=== PATIENT | male | born 1955 | race Caucasian/White ===

== ENCOUNTER 2022-12-30 08:00 | Outpatient (RCR) | payer MEDICARE, BC, SELFPAY ==
--- NOTE | 2022-12-15 11:58 | PT.OPEX ---
PT [place] Outpatient Eval PT [facility] Outpatient Eval Start: 12/15/22 08:23 Freq: Status: Active Protocol: Document 12/15/22 08:24 ELISSARon (Rec: 12/15/22 11:56 REZA [email or web address]) E-signed By Yani Benoit, PT Physical Therapy Outpatient Evaluation Insurance Information Recert Due Date 03/11/23 Insurance Name [employer],Medicare B, Blue Cross/Blue Shield Medical Diagnosis Right shoulder pain Treating Diagnosis Right shoulder pain, limited shoulder ROM, impaired RC and periscapular strength, poor postural positioning Referring MD Dianelys Peña Subjective Subjective Ho reports to PT with primary complaint of right shoulder pain following extensive housework (flipping a house) over the past 6 months. He denies a specific injury that occurred. He has taken a break from work on the house for 2 weeks and feeling slightly better but still not able to perform any overhead motion. He will be going on vacation to [place] for 1 month in 2 weeks so hoping to control pain by then. He is having trouble sleeping on that shoulder as well. Denies any radicular symptoms. Has been icing which is somewhat pain relieving and taking Alieve for pain control. Goals are to return to overhead reaching and lifting to return to house tasks of painting, etc. PMH: hypertension Pain Comments 2/10 at rest Date of Last Physician Visit 11/26/22 Current Work Status Retired Preferred Name Ho Objective Other/Pertinent Objective Seated UE ROM (R/L): -Functional ER0: Occiput/T1 -Abd:91/176 -FF: 121/171 -Functional IR: L5/T7 UE Strength (R/L): -ER0: R: 5/5, L: 5/5 -IR0: R: 5/5, L: 5/5 -FF: R: 4+/5, L: 5/5 -Abduction: R: 4-/5 painful, L : 5/5 -Mid Trap: R: 4/5, L: 4/5 -Lower Trap: R: 4-/5, L: 4-/5 Posture: slight rounded shoulders Impingement: -Rice-Annelise: + Labral: -Modified Grove?s: - Bicep Tendon: -Speeds: - Rotator Cuff: -Drop Arm Test: - -ER Lag: - -Belly Press: - Functional Test Performed & Score SPADI: 63% Assessment Assessment/Impression Patient is a 67 year old male presenting to physical therapy for evaluation and treatment of right shoulder pain. Patient presents with limited shoulder flexion/abduction/ functional IR/functional ER, abduction weakness and pain and positive rice annelise indicative of shoulder impingement from overuse while working on his house. These impairments are limiting the patients ability to reach overhead, sleep on right shoulder, dressing, washing hair, lifting >20lb. Patient appears motivated to participate in PT and presents with good prognosis to improve mobility, strength, proprioception and return to functional activities with skilled physical therapy intervention. Primary Functional Limitations reach overhead, sleep on right shoulder, dressing, washing hair, lifting >20lb Plan of Care Rehabilitation Potential Good Physical Therapy Goals In 6 weeks (01/26/23) Patient demonstrates at least 160 degrees of shoulder flexion for ability to reach overhead into a high shelf, dress, and bathe without limitation. Pt will demonstrate improved sitting posture without cueing in consecutive sessions in order to decrease strain on right shoulder patient is able to sleep, including on shoulder, with waking 0-1 times per night In 12 weeks (03/09/23) Pt will exhibit RC and Scapular Stab strength of at least 4+/5 to allow progression back to normal and desired activities without pain Pt will exhibit 20 point improvement in SPADI Outcome measure to demonstrate functional improvement and progress towards goals. Treatment Plan/Direct Interventions Gait Training,Ice/Cold/ Vasopneumatic,Joint Mobilization,Manual Therapy, Neuromuscular Re-ed,Self-Care/ Home Management,Therapeutic Activities,Therapeutic Exercises Frequency/Duration 1x/wk for 6 weeks with 4 more sessions prn based on progress Patient Will Be Discharged From Therapy Completion of LTG(s), Independent w/HEP, Independently Progressing Evaluation Billing Untimed Code Treatment Minutes 25 Complexity Low Certification Information Initial Certification Date 12/15/22 Ending Certification Date 03/11/23 Provider Signature Shows Agreement With POC & Medical Necessity Physician Signature & Date Requested Please Sign/Date Here Physician Comment/Change : Physician NPI Number #
== END 2023-04-14 15:30 | disposition home or self-care (01) ==
PROVIDERS: PCP Family Medicine; Visit Provider Family Medicine
DX: M25.511 Pain in right shoulder (principal); R29.3 Abnormal posture; R53.1 Weakness; Z51.89 Encounter for other specified aftercare
CPT/HCPCS: 97110; 97112; 97161

== ENCOUNTER 2023-05-05 07:45 | Outpatient (CLI) | payer MEDICARE, BC, SELFPAY | END 2023-05-05 07:46 | disposition home or self-care (01) | LOC: NFLDREF 05-07 10:10 | PROVIDERS: PCP Family Medicine; Referring Provider Family Medicine; Visit Provider Family Medicine | DX: Z00.00 Encounter for general adult medical examination without abnormal findings (principal); E78.5 Hyperlipidemia, unspecified; I10 Essential (primary) hypertension; Z12.5 Encounter for screening for malignant neoplasm of prostate; Z13.9 Encounter for screening, unspecified | CPT/HCPCS: 80053; 80061; 84153 ==

== ENCOUNTER 2023-07-28 08:00 | Outpatient (RCR) | payer MEDICARE, BC, SELFPAY ==
--- NOTE | 2023-06-09 10:50 | PT.OPEX ---
PT [place] Outpatient Eval PT [facility] Outpatient Eval Start: 06/09/23 07:51 Freq: Status: Active Protocol: Document 06/09/23 07:52 REZA (Rec: 06/09/23 10:50 REZA [id number]) E-signed By Yani Benoit, PT Physical Therapy Outpatient Evaluation Insurance Information Recert Due Date 09/03/23 Insurance Name Medicare B,Blue Cross/Blue Shield Medical Diagnosis Right shoulder pain Treating Diagnosis Right shoulder pain, limited shoulder ROM, RC and periscapular weakness, poor postural positioning Referring Dianelys Workman Subjective Subjective Ho returns to PT with similar condition that he was seeing PT for in December of 2022. He originally reported pain following extensive overhead work (painting). At the time it appeared he was getting impingement type of pain. He then went on a 1 month trip to [place] and did not follow up with PT. He notes pain did get better for a little bit when he wasn't using the shoulder much. Now that he has gotten back to chores/moving and lifting he has exacerbated the pain more. He notes pain is localized more on the top of the shoulder without radiating symptoms. He has tried to get back to some of the exercises without much relief. He ices when the shoulder pain is bad enough. Taking OTC pain meds morning/night prn. He has not had any formal imaging of the shoulder. Painful laying on his rights side but sleeps just fine on his back or left side. Goals are to return to overhead work/lifting, sleeping on right side and just general pain free mobility. PMH: HTN Pain Comments 12/24 Date of Last Physician Visit 05/08/23 Current Work Status Retired Precautions Therapy Limitations/Systems Review Not Limited Objective Other/Pertinent Objective Seated UE ROM (R/L): -ER0: 70/70 -Abd: 60-133 with pain/160 -FF: 93-130 with pain/160 -IR: L5/T7 UE Strength (R/L): -ER0: R: 4-/5*, L: 5/5 -IR0: R: 5/5, L: 5/5 -FF: R: 4/5*, L: 5/5 -Abduction: R: 4-/5, L: 5/5 -Mid Trap: R: 4/5, L: 4+/5 -Lower Trap: R: 4-/5, L: 4/5 Impingement: -Rice-Annelise: + Labral: -Apprehension/relocation: + Bicep Tendon: -Speeds: + Rotator Cuff: -Drop Arm Test: - -ER Lag: - -Belly Press: - Palpation: TTP AC joint Functional Test Performed & Score SPADI: 63% Assessment Assessment/Impression Patient is a 67 year old male presenting to physical therapy for evaluation and treatment of chronic right shoulder pain following extensive overuse/ overhead work. Patient presents with painful arc, + rice annelise, + infraspinatus test indicating subacromial pain syndrome. Also noting AC joint tenderness possibly indicating arthritis as well as postural weakness/impaired postural positioning. These impairments are limiting the patients ability to return to overhead lifting/repetitive work, sleep comfortably on R shoulder. Patient appears motivated to participate in PT and presents with good prognosis to improve mobility, strength, proprioception and return to functional activities with skilled physical therapy intervention. Primary Functional Limitations overhead lifting/repetitive work, sleep comfortably on R shoulder Plan of Care Rehabilitation Potential Good Physical Therapy Goals In 6 weeks (07/21/23) Patient demonstrates at least 140 degrees of pain free shoulder flexion for ability to reach overhead into a high shelf, dress, and bathe without limitation. Patient is able to sleep, including on shoulder, with waking 0-1 times per night Pt will demonstrate improved sitting posture without cueing in consecutive sessions in order to decrease strain on shoulder In 10 weeks (08/18/23) Pt will exhibit 20 point improvement in SPADI Outcome measure to demonstrate functional improvement and progress towards goals. Pt will exhibit RC, GH, and periscapular strength no less than 4+/5 in order lift overhead with <2/10 pain Treatment Plan/Direct Interventions Ice/Cold/Vasopneumatic,Joint Mobilization,Manual Therapy, Neuromuscular Re-ed,Self-Care/ Home Management,Therapeutic Activities,Therapeutic Exercises Frequency/Duration 1x/wk for 6 weeks with additional 4 sessions prn based on progress Patient Will Be Discharged From Therapy Completion of LTG(s), Independent w/HEP, Independently Progressing Evaluation Billing Untimed Code Treatment Minutes 20 Complexity Low Certification Information Initial Certification Date 06/09/23 Ending Certification Date 09/03/23 Provider Signature Shows Agreement With POC & Medical Necessity Physician Signature & Date Requested Please Sign/Date Here Physician Comment/Change : Physician NPI Number #
== END 2023-10-20 15:17 | disposition home or self-care (01) ==
PROVIDERS: PCP Family Medicine; Visit Provider Family Medicine
DX: M25.511 Pain in right shoulder (principal); Z74.09 Other reduced mobility; R29.3 Abnormal posture; M62.81 Muscle weakness (generalized); Z51.89 Encounter for other specified aftercare
CPT/HCPCS: 97110; 97140; 97161

== ENCOUNTER 2023-08-20 05:37 | Emergency (ER) | payer MEDICARE, BC, SELFPAY ==
[2023-08-20] VITALS (16 sets, daily range): BP systolic 109–145; BP diastolic 72–85; PULSE 42–55; RESP 16–18; TEMP 36.7; O2SAT 93–99; BMI 27.3
--- NOTE | 2023-08-20 05:59 | CRLHL7_ITS ---
For Patients: As a result of the Century Cures Act, medical imaging exams and procedure reports are released immediately into your electronic medical record. You may view this report before your referring provider. If you have questions, please contact your health care provider. INDICATION: Chest pain COMPARISON: None TECHNIQUE: PA and lateral views of the chest were acquired FINDINGS: TUBES AND LINES: None. HEART AND MEDIASTINUM: The heart size is normal. The mediastinal contour appears normal for patient age. LUNGS AND PLEURAL SPACES: The lungs appear normal.The pleural spaces are unremarkable. OSSEOUS STRUCTURES: Age-appropriate appearance. No acute focal finding. IMPRESSION: No evidence of active pulmonary disease. Dictated by Jon Kumari MD @ 08/20/2023 6:50:26 AM (Electronically Signed)
[2023-08-20] MEDS: ASPIRIN 81 MG TAB.CHEW 324 MG PO (06:05)
--- NOTE | 2023-08-20 06:09 | ED.GENADULT ---
HPI - General Adult General Chief complaint: Chest Pain Stated complaint: chest pain Time Seen by Provider: 08/20/23 06:06 Source: patient and family Mode of arrival: ambulatory Limitations: no limitations History of Present Illness HPI narrative: 68-year-old male with history of hypertension, nonsmoker presents to the emergency department for evaluation of chest pain that started about 45 minutes prior to arrival. Chest pain is located in the very anterior mid right chest/pectoralis area. Does not radiate. Achy and improving significantly since original onset. Is worsened by taking deep breath. No fever, no productive cough. No exertional type symptoms. Did not try taking any medications prior to coming to ED. Reports the had a similar episode that lasted about 10 minutes last month while he was driving. No other history of similar problems. Denies stress testing or prior angiography. Had a cardiac echo a year and half ago, normal. No previous history of coronary artery disease, arrhythmia or structural heart disease. No history of DVT or PE. No dizziness, lightheadedness or syncopal type symptoms. No palpitations or fluttering. He reports that he has been undergoing physical therapy of his right shoulder and wonders if the pain is connected. No nausea, no vomiting, no shortness of breath. He does have a history of hyperlipidemia also and this is managed on a statin. Past medical history notable for hypertension, hyperlipidemia and GERD. Home meds are omeprazole, lisinopril and simvastatin. Socially is a nonsmoker does have a family history of heart disease but not premature ages. ROS is notable for the chest symptoms as described above only, otherwise denies times 12 systems. Related Data Previous Rx's Medication Instructions Recorded lisinopril 10 mg tablet 10 mg PO DAILY #90 tabs 05/08/23 omeprazole 20 mg capsule,delayed 20 mg PO QDAY #90 caps 05/08/23 release simvastatin 20 mg tablet 20 mg PO DAILY #90 tabs 05/08/23 Allergies Allergy/AdvReac Type Severity Reaction Status Date / Time No Known Allergies Allergy Mild N/A Verified 08/20/23 05:48 [facility] Medical History Mallet deformity of left little finger (~10/15/22) ?M20.012 - Mallet finger of left finger(s) (ICD-10) Mitral valve prolapse (1974) ?I34.1 - Nonrheumatic mitral (valve) prolapse (ICD-10) Lateral epicondylitis of right elbow ?M77.11 - Lateral epicondylitis, right elbow (ICD-10) Hypertension ?I10 - Essential (primary) hypertension (ICD-10) Hyperlipidemia ?E78.5 - Hyperlipidemia, unspecified (ICD-10) History of renal calculi (2013) ?Z87.442 - Personal history of urinary calculi (ICD-10) History of colonic polyps ?Z86.010 - Personal history of colonic polyps (ICD-10) Bilateral hearing loss ?H91.93 - Unspecified hearing loss, bilateral (ICD-10) Abdominal aortic ectasia (01/2022) ?I77.811 - Abdominal aortic ectasia (ICD-10) GERD (gastroesophageal reflux disease) (2018) ?K21.9 - Gastro-esophageal reflux disease without esophagitis (ICD-10) Surgical History History of vasectomy (1989) ?Z98.52 - Vasectomy status (ICD-10) History of bilateral cataract extraction (1990) ?Z98.41 - Cataract extraction status, right eye (ICD-10) ?Z98.42 - Cataract extraction status, left eye (ICD-10) History of appendectomy (1973) ?Z90.49 - Acquired absence of other specified parts of digestive tract (ICD-10) Family History Sister Breast cancer Schizophrenia H/O heart artery stent, Onset Age: 63 Mother Stroke Father Myocardial infarction, Onset Age: 68 Brother FH: colonic polyps Other Coronary artery disease Social History Narrative: , 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, 2 kids, from [place] Exercises 3 to 4 times per week- remodeling house, yard work Non-smoker- 14 pack years, quit age 33 Social drinker- 5/week What is your current living situation?: I presently have a place to live Problems where you live: declined to answer In the past 12 months, utilities in danger of being shut off: no In past 12 months, lack of transportation kept you from medical appts, meetings, work, or getting things needed for daily living: no In the past 12 mos, have been you worried that your food would run out before you had money to buy more?: never true In the past 12 mos, the food you bought just didn't last and you didn't have money to buy more?: never true Smoking Status: Former smoker Second hand tobacco smoke exposure: No How often do you have a drink containing alcohol: never How often do you have six or more drinks on one occasion: Never AUDIT-C Alcohol total score: 0 Non-prescribed substance use: denies use How often does anyone, including family, friends and others, physically hurt you: never How often does anyone, including family, friends and others, insult or talk down to you: never How often does anyone, including family, friends and others, threaten you with harm: never How often does anyone, including family, friends and others, scream or curse at you: never Little interest or pleasure in doing things: not at all Feeling down, depressed, or hopeless: several days Exam Const: Vital Signs, click to edit/add: Vital Signs - 24 hr 08/20/23 05:45 08/20/23 05:46 08/20/23 06:02 Temperature 98.0 F Pulse Rate 52 L Pulse Rate [Right Pulse Oximeter] 55 L Respiratory Rate 18 18 Blood Pressure 116/79 Blood Pressure [Ri ght Upper Arm] 145/85 H Pulse Oximetry 99 99 95 Oxygen Delivery Me od Room Air 08/20/23 06:31 08/20/23 06:32 08/20/23 06:45 Temperature Pulse Rate 55 L 48 L 44 L Pulse Rate [Right Pulse Oximeter] Respiratory Rate 18 Blood Pressure 110/74 Blood Pressure [Ri ght Upper Arm] Pulse Oximetry 94 94 94 Oxygen Delivery Me thod 08/20/23 07:00 08/20/23 07:01 08/20/23 07:02 Temperature Pulse Rate 48 L 48 L 47 L Pulse Rate [Right Pulse Oximeter] Respiratory Rate 16 Blood Pressure 112/73 Blood Pressure [Ri ght Upper Arm] Pulse Oximetry 94 94 93 Oxygen Delivery Nj thod 08/20/23 07:15 08/20/23 07:30 08/20/23 07:31 Temperature Pulse Rate 45 L 53 L 52 L Pulse Rate [Right Pulse Oximeter] Respiratory Rate 16 Blood Pressure 115/74 Blood Pressure [Ri ght Upper Arm] Pulse Oximetry 95 95 95 Oxygen Delivery Me thod 08/20/23 07:32 08/20/23 07:45 Temperature Pulse Rate 50 L 48 L Pulse Rate [Right Pulse Oximeter] Respiratory Rate Blood Pressure Blood Pressure [Ri ght Upper Arm] Pulse Oximetry 95 94 Oxygen Delivery Me thod Documenting provider has reviewed patient's vital signs: yes Common normals: no apparent distress and alert General appearance: cooperative, comfortable and well kempt HENMT: Common normals: normocephalic Head and scalp: normocephalic Mouth: oral and palatal mucosa normal Throat: posterior oropharynx normal Eye: Common normals: conjunctivae normal General eye: normal appearance of both eyes Conjunctiva: conjunctiva(e) normal Neck & C-Spine: Common normals: full ROM and no lymphadenopathy Chest: Common normals: inspection of chest normal and palpation of chest normal Resp: Common normals: normal respiratory effort and clear to auscultation bilaterally Effort & inspection: able to speak in complete sentences Auscultation: clear to auscultation bilaterally Cardio: Common normals: regular rate, regular rhythm, S1 normal heart sound, S2 normal heart sound and no murmurs Rate: regular rate Rhythm: regular rhythm Heart sounds: S1 normal and S2 normal GI: Common normals: Normal to inspection, nondistended, normoactive bowel sounds present, soft to palpation, non-tender and no hepatosplenomegaly Palpation: soft and no hepatosplenomegaly Extremity: Common normals: normal to inspection and no pedal edema Neuro: Sensorium/orientation: alert Speech: speech normal Motor exam: no movement abnormalities noted Psych: Appearance: well kempt Attitude: engaged Mood and affect: euthymic mood Insight: insight good Judgement: judgment good Skin: Common normals: no rashes or lesions noted General skin exam: no rashes or lesions noted Course Course ED Course: 68-year-old male with no prior coronary artery disease, positive family history and risk factors of hypertension and hyperlipidemia comes in with nonexertional type right-sided chest pain at rest. Suspicious for musculoskeletal etiology as it is reproducible with deep breath, thankfully is improving. He is mildly bradycardic but does not seem symptomatic to this. Will monitor on vehicle monitor technician for a couple of hours, serial troponins, chest x-ray, typical basic labs, will give 325 of aspirin p.o. x1. Await findings. Reevaluation(s) Time of Reevaluation #1: 07:19 Reevaluation #1: Inform patient of all negative results thus far, so waiting on that 745 troponin which we anticipate will be negative. He had a brief episode of the similar pain lasting just a few minutes and it has resolved again, he was sleeping comfortably in the room when I awoke him. We discussed his borderline low heart rate and he assures me that this is actually a normal value for him. Time of Reevaluation #2: 08:03 Reevaluation #2: Reviewed 2nd troponin, normal. Typical alarm symptoms and anticipatory guidance discussed. Would recommend stress test if his symptoms persist, see discharge instructions. Vital Signs Vital signs: Initial Vital Signs Respiratory Effort Normal, Spontaneous, Non-Labored 08/20/23 05:38 Respiratory Depth Normal 08/20/23 05:38 Respiratory Pattern Normal 08/20/23 05:38 Vital Signs Pulse Oximetry 99 08/20/23 05:45 Temperature 98.0 F 08/20/23 05:46 Pulse Rate 48 L 08/20/23 07:45 Respiratory Rate 16 08/20/23 07:31 Blood Pressure 115/74 08/20/23 07:31 Pulse Oximetry 94 08/20/23 07:45 Oxygen Delivery Method Room Air 08/20/23 05:46 Medications Administered Medications: Discontinued Medications Generic Name Dose Route Start Last Admin Trade Name Freq PRN Reason Stop Dose Admin Aspirin 324 mg 08/20/23 05:59 08/20/23 06:05 Aspirin 81 Mg Tab.Chew PO 08/20/23 06:00 324 mg ONCE ONE Administration Medical Decision Making Lab Data Lab results reviewed: Yes I reviewed the patient's lab results Lab results narrative: All reassuring, 2nd troponin also negative. Labs: Lab Results 08/20/23 08/20/23 08/20/23 Range/Units 05:45 05:48 07:45 D-Dimer Quant (PE/DVT) < 0.27 (0.00-0.50) ug/ml Sodium 139 (135-149) mmol/L Potassium 4.2 (3.6-5.1) mmol/L Chloride 107 (96-114) mmol/L Carbon Dioxide 23 (20-32) mmol/L Anion Gap 9 (7-15) mEq/L BUN 22 (7-30) mg/dL Creatinine 0.9 (0.5-1.5) mg/dL Estimated Creat Clear 74.01 Estimated GFR 94 ml/min Glucose 95 (60-115) mg/dL Calcium 9.3 (8.4-10.6) mg/dL Total Bilirubin 0.5 (0.1-1.5) mg/dL AST 26 (12-35) U/L ALT 23 (4-50) U/L Alkaline Phosphatase 85 (40-150) U/L Troponin I < 0.01 L (0.01-0.04) ng/mL C-Reactive Protein 0.7 (0.5-1.0) mg/dL NT-Pro-B Natriuret Pep 22 pg/mL Total Protein 6.3 (6.0-8.3) g/dL Albumin 3.9 (3.3-5.0) g/dL POC Troponin I 0.00 L 0.00 L (0.01-0.04) ng/ml Imaging Data Chest x-ray: Attestation: I have reviewed the pertinent imaging results. My impression: Normal chest x-ray Radiologist's impression: IMPRESSION: No evidence of active pulmonary disease. ECG Data Attestation: I personally reviewed and interpreted this ECG as follows: Prior ECG tracings: not available for review Interpretation: Normal sinus rhythm, rate of 52. Normal axis, normal intervals. No significant ST or T-wave abnormalities. Good R-wave progression, normal EKG. Discharge Plan Discharge Clinical Impression: Non-cardiac chest pain Patient Disposition: Home w/ Parent or Adult Condition: Improved Instructions: Noncardiac Chest Pain (ED) Additional Instructions: As we discussed, I am not certain what caused your chest pain this morning but I can feel reassured that there are no signs of a heart attack, heart failure, abnormal heart rhythm, blood clot in the lungs, pneumonia or other potentially dangerous cause. Most likely this is a musculoskeletal problem, originating from the muscles, bones or nerves in the chest and shoulder. There are no signs of any life-threatening condition. I would like for you to continue to monitor your symptoms and if you have symptoms that are present more on exertion, accompanied by shortness of breath or are worsening in some way, I would recommend that you discuss these with her primary care provider and arrange an outpatient stress test. I do feel as though it is safe for you to keep your planned trip for this weekend. Continue your previously prescribed medications. Activity Level: No Restrictions Discharge Diet: Regular Prescriptions: No Action lisinopril 10 mg tablet 10 mg PO DAILY Qty: 90 4RF omeprazole 20 mg capsule,delayed release(DR/EC) 20 mg PO QDAY Qty: 90 2RF simvastatin 20 mg tablet 20 mg PO DAILY Qty: 90 4RF Follow Up/Referrals: Dianelys Peña MD [Primary Care Provider] - Stand Alone Forms: [employer] Info Instructions
[2023-08-20 06:19] LABS: Albumin* 3.9 g/dL (3.3-5.0); Chloride* 107 mmol/L (96-114)
[2023-08-20 06:20] LABS: Potassium* 4.2 mmol/L (3.6-5.1); Sodium* 139 mmol/L (135-149)
[2023-08-20 06:22] LABS: Alkaline Phosphatase* 85 U/L (40-150); Anion Gap 9 mEq/L (7-15); Aspartate Amino Transferase* 26 U/L (12-35); Bilirubin Total* 0.5 mg/dL (0.1-1.5); Carbon Dioxide* 23 mmol/L (20-32); Creatinine* 0.9 mg/dL (0.5-1.5); Est. Creatinine Clearance* 74.01; Estimated Glomerular Filt Rate 94 ml/min; Total Protein* 6.3 g/dL (6.0-8.3)
[2023-08-20 06:23] LABS: Alanine Aminotransferase* 23 U/L (4-50); Blood Urea Nitrogen* 22 mg/dL (7-30); Calcium* 9.3 mg/dL (8.4-10.6); Glucose* 95 mg/dL (60-115)
[2023-08-20 06:24] LABS: D Dimer Quantitative* < 0.27 ug/ml (0.00-0.50)
[2023-08-20 06:25] LABS: C Reactive Protein* 0.7 mg/dL (0.5-1.0)
[2023-08-20 06:35] LABS: NT Pro B Type NatriureticPept* 22 pg/mL; Troponin I* < 0.01 ng/mL (0.01-0.04)
== END 2023-08-20 08:10 | disposition home or self-care (01) ==
PROVIDERS: Emergency Provider Family Medicine; PCP Family Medicine
DX: R07.89 Other chest pain (principal)
CPT/HCPCS: 36415; 71046; 80053; 83880; 84484; 85379; 86140; 93005; 94761; 99284; 99285; A9270

== ENCOUNTER 2024-05-25 13:13 | Outpatient (CLI) | payer MEDICARE, BC, SELFPAY | END 2024-05-25 13:14 | disposition home or self-care (01) | LOC: NFLDREF 05-27 12:46 | PROVIDERS: PCP Family Medicine; Referring Provider Family Medicine; Visit Provider Family Medicine | DX: E78.5 Hyperlipidemia, unspecified (principal); I10 Essential (primary) hypertension; Z12.5 Encounter for screening for malignant neoplasm of prostate | CPT/HCPCS: 80053; 80061; G0103 ==

== ENCOUNTER 2024-06-13 16:30 | Outpatient (RCR) | payer MEDICARE, BC, SELFPAY ==
--- NOTE | 2024-06-02 15:18 | PT.OPEX ---
[facility] Eval Start: 06/02/24 09:37 Freq: Status: Active Protocol: Document 06/02/24 09:42 REZA (Rec: 06/02/24 14:52 KLV [id number]) E-signed By Yani Benoit, PT Physical Therapy Outpatient Evaluation Insurance Information Recert Due Date 08/27/24 Insurance Name Medicare B,[employer] Medical Diagnosis Low back pain Treating Diagnosis Low back pain, limited lumbar ROM, core and lumbar extensor weakness Imaging Report Information x-ray: 05/31/24 Normal alignment and mineralization without acute fracture, dislocation or suspicious bony lesion. Vertebral body heights are preserved. Intervertebral disc spaces are maintained. Mild multilevel anterior endplate osteophytes are noted and there are sclerotic changes of the lowest lumbar facets, compatible with mild degenerative changes. Soft tissues are unremarkable. Referring MD Mariana Keller Subjective Ho reports to PT with primary complaint of acute low back pain with initial gradual onset about 1 month ago. He has been fostering an 8 month old and doing more lifting, carrying and putting baby in/out of car seat. This pain has been more exacerbated in the past week with most difficulty getting out of bed in the morning, sometimes sitting, transitions (sit<> stand and getting up off the floor), getting up from a chair after sitting for an extended period of time. Pain was more central across the upper low back however now has traveled more to just the right side. He has been doing some icing and heating which heat seems to feel better along with a few stretches. He was prescribed hydrocodone for the pain. He will be taking a break from lifting over the weekend but will be going back to work on Thursday and will have to return to lifting/taking care of and 8 month old. Denies radicular symptoms or bowel/bladder changes. PMH: Mitral valve prolapse Cardiac echo 2021 shows no mitral valve prolapse normal cardiac echo 1973 Lateral epicondylitis of right elbow & R hand numbness. Abstracted [facility] record. Hypertension Hyperlipidemia History of renal calculi 2013 History of colonic polyps Last scope 09/07/17 Negative. 10Y repeat. See scanned [facility] report. Bilateral hearing loss Has hearing aids. Abdominal aortic ectasia proximal 2.4 x 3.2 cm, recheck US 3 year 01/2022 GERD (gastroesophageal reflux disease) 2019 Pain Comments 4/10 worst Date of Last Physician Visit 06/01/24 Current Work Status Retired Objective Other/Pertinent Objective Lumbar ROM: -Flx: mid thigh prior to lumbar pain -Ext: unable -R Sidebend: 100% -L Sidebend: 15% with pain into right side Hip ROM: grossly WNL however pulls/pain into R lumber with L hip flexion Palpation: TTP R upper lumbar paraspinals and QL, palpable nodule about 2x3 cm felt midway in low back at L2 level possibly indicating lipoma. x-ray unremarkable Denies radicular symptoms and no dural tension felt today TA activation fair in quadruped and seated Pelvic tilts: good coordination however painful into anterior pelvic tilt Functional Test Performed & Score Oswestry: 25/50, 50% Assessment Assessment/Impression Patient is a 68 year old male presenting to physical therapy for evaluation and treatment of low back pain. Patient presents with limited lumbar ROM (flexion, extension, L SB) , core and back weakness limiting his ability to lift more than light weight, perform transitions such as sit<>stand and supine<>sit and squatting without increase in back pain. Pain appears to be positional and mechanical at this time as it does come and go along with palpable soft tissue tension into R>L lumbar musculature. Patient appears motivated to participate in PT and presents with good prognosis to improve mobility, strength, proprioception and return to functional activities with skilled physical therapy intervention. Plan of Care Rehabilitation Potential Good Physical Therapy Goals In 4 visits: Patient will demonstrate full lumbar AROM with 1/10 pain in all directions in order to demonstrate improved functional mobility. Pt will exhibit improved TA activation in order to improve posture and LE biomechanics. In 8 visits: Pt will exhibit 20% improvement on the Modified Oswestry Outcome measure to demonstrate functional improvement and progress towards goals. Pt will be able to lift and carry 25lb from floor to waist height in order to care for 8 month old foster child with < 2/10 low back pain Treatment Plan/Direct Interventions Dry Needling,Ice/Cold/ Vasopneumatic,Joint Mobilization,Manual Therapy, Neuromuscular Re-ed,Self-Care/ Home Management,Therapeutic Activities,Therapeutic Exercises,Traction (Mechanical ),Ultrasound Frequency/Duration 1x/wk for 4 weeks with additional 2-4 sessions prn based on progress Patient Will Be Discharged From Therapy Completion of LTG(s), Independent w/HEP, Independently Progressing Evaluation Billing Untimed Code Treatment Minutes 15 Complexity Low Certification Information Initial Certification Date 06/02/24 Ending Certification Date 08/27/24 Provider Signature Required Yes Provider Signature Shows Agreement With POC & Medical Necessity Physician NPI Number Write NPI# Here Physician Comment/Change : Physician Signature & Date Requested Please Sign/Date Here
== END 2024-09-19 16:31 | disposition home or self-care (01) ==
PROVIDERS: PCP Family Medicine; Visit Provider Family Medicine
DX: M54.50 Low back pain, unspecified (principal); Z74.09 Other reduced mobility; R53.1 Weakness; Z51.89 Encounter for other specified aftercare
CPT/HCPCS: 97110; 97140; 97161

== ENCOUNTER 2025-05-30 07:37 | Outpatient (CLI) | payer MEDICARE, BC, SELFPAY | END 2025-05-30 07:38 | disposition home or self-care (01) | PROVIDERS: PCP Family Medicine; Visit Provider Family Medicine | DX: R19.7 Diarrhea, unspecified (principal); Z00.00 Encounter for general adult medical examination without abnormal findings | CPT/HCPCS: 80053; 87045; 87046; 87177; 87209; 87427 ==

== ENCOUNTER 2025-06-30 07:44 | Outpatient (CLI) | payer MEDICARE, BC, SELFPAY | END 2025-06-30 07:45 | disposition home or self-care (01) | LOC: NFLDREF 07-05 17:39 | PROVIDERS: PCP Family Medicine; Referring Provider Family Medicine; Visit Provider Family Medicine | DX: I10 Essential (primary) hypertension (principal); E78.5 Hyperlipidemia, unspecified; Z12.5 Encounter for screening for malignant neoplasm of prostate | CPT/HCPCS: 80053; 80061; G0103 ==

== ENCOUNTER 2025-07-18 07:04 | Outpatient (CLI) | payer MEDICARE, BC, SELFPAY ==
--- NOTE | 2025-07-18 07:15 | CRLHL7_ITS ---
For Patients: As a result of the Century Cures Act, medical imaging exams and procedure reports are released immediately into your electronic medical record. You may view this report before your referring provider. If you have questions, please contact your health care provider. Examination: US abdominal aorta Indication: Abdominal aortic aneurysm screening. Technique: White scale and color Doppler images of the aorta and common iliac arteries are obtained. Comparison: None Findings: Proximal aorta: 2.8 x 2.9 cm Mid aorta: 1.8 x 2.2 cm Distal aorta: 1.5 x 2.0 cm Right common iliac artery: 1.8 x 1.3 cm Left common iliac artery: 1.7 x 1.4 cm Atherosclerotic changes are present. Impression: No abdominal aortic aneurysm. Dictated by Jose Anthony MD @ 07/18/2025 10:37:47 AM (Electronically Signed)
== END 2025-07-18 07:05 | disposition home or self-care (01) ==
LOC: US 07:05
PROVIDERS: PCP Family Medicine; Visit Provider Family Medicine
DX: I77.811 Abdominal aortic ectasia (principal)
CPT/HCPCS: 76775